=== PATIENT | female | born 1930 | race Caucasian/White ===

== ENCOUNTER 2019-02-26 11:06 | Inpatient (IN) | payer MEDICARE, OTHER ==
[2019-02-26] MEDS: ONDANSETRON 4 MG INJ IV (11:29)
[2019-02-26 11:30] LABS: ADD MAN DIFF? NO
[2019-02-26] MEDS: HYDROmorphONE 1 MG/ML SYG IV (11:30)
[2019-02-26 11:34] LABS: BASOPHILS % 0.4 % (0.0-2.0); EOSINOPHILS # 0.2 10^3/ul (0.0-0.5); EOSINOPHILS % 2.2 % (0.0-7.0); HEMATOCRIT 33.8 % (37.0-47.0); HEMOGLOBIN 10.7 g/dl (12.0-16.0); LYMPHOCYTES # 3.1 10^3/ul (0.8-2.9); MEAN CORPUSCULAR HEMOGLOBIN 27.3 pg (29.0-33.0); MEAN CORPUSCULAR HGB CONC 31.7 g/dl (32.0-37.0); MEAN CORPUSCULAR VOLUME 86.2 fl (82.0-101.0); MEAN PLATELET VOLUME 10.3 fl (7.4-10.4); MONOCYTE # 0.5 10^3/ul (0.3-0.9); MONOCYTES % 6.5 % (0.0-11.0); NEUTROPHIL # 3.5 10^3/ul (1.6-7.5); NEUTROPHILS % 47.4 % (39.0-77.0); PLATELET COUNT 218 10^3/UL (140-415); RED BLOOD COUNT 3.92 10^6/ul (4.20-5.40); RED CELL DISTRIBUTION WIDTH 14.6 % (11.5-14.5)
[2019-02-26 11:34] LABS: WHITE BLOOD COUNT 7.3 10^3/ul (4.8-10.8)
[2019-02-26 11:49] LABS: ALANINE AMINOTRANSFERASE 19 IU/L (13-69); ALBUMIN 4.4 g/dl (3.3-4.9); ALBUMIN/GLOBULIN RATIO 1.18; ALKALINE PHOSPHATASE 75 IU/L (42-121); ANION GAP 14 (5-13); ASPARTATE AMINO TRANSFERASE 28 IU/L (15-46); BILIRUBIN,INDIRECT 0.4 mg/dl (0-1.1); BILIRUBIN,TOTAL 0.4 mg/dl (0.2-1.3); BLOOD UREA NITROGEN 49 mg/dl (7-20); CALCIUM 9.6 mg/dl (8.4-10.2); CARBON DIOXIDE 24 mmol/L (21-31); CHLORIDE 105 mmol/L (97-110); GLUCOSE 112 mg/dl (70-220); POTASSIUM 4.5 mmol/L (3.5-5.1); SODIUM 143 mmol/L (135-144); TOTAL PROTEIN 8.1 g/dl (6.1-8.1)
[2019-02-26 11:51] LABS: INR 1.14; PROTIME 14.7 Sec (11.9-14.9); PT RATIO 1.1
[2019-02-26 11:52] LABS: PARTIAL THROMBOPLASTIN TIME 27.5 Sec (23.0-35.0)
[2019-02-26 12:00] LABS: TROPONIN-I < 0.012 ng/ml (0.000-0.120)
[2019-02-26] MEDS ORDERED: ACETAMINOPHEN 325 MG TAB PO (13:00)
[2019-02-26] MEDS ORDERED: ONDANSETRON 4 MG INJ IV ×2 (13:00)
[2019-02-26 14:50] LABS: ADD UMIC NO; UR ASCORBIC ACID 40 mg/dL (NEGATIVE); UR BACTERIA MANY /HPF (NONE SEEN); UR BILIRUBIN (Dip) NEGATIVE (NEGATIVE); UR BLOOD (Dip) NEGATIVE (NEGATIVE); UR CLARITY SLIGHTLY CLOUDY (CLEAR); UR COLOR YELLOW (YELLOW); UR GLUCOSE (Dip) NEGATIVE (NEGATIVE); UR KETONES (Dip) NEGATIVE (NEGATIVE); UR LEUKOCYTE ESTERASE (Dip) NEGATIVE Leu/ul (NEGATIVE); UR NITRITE (Dip) NEGATIVE (NEGATIVE); UR RBC 0 /HPF (0-5); UR SPECIFIC GRAVITY (Dip) 1.016 (1.003-1.030); UR TOTAL PROTEIN (Dip) NEGATIVE (NEGATIVE); UR UROBILINOGEN (Dip) NEGATIVE (NEGATIVE); UR WBC 1 /HPF (0-5)
[2019-02-26] MEDS ORDERED: morphine 2 MG INJ (15:00)
[2019-02-26] MEDS: morphine 2 MG INJ IV (15:01)
[2019-02-26 15:07] LABS: CREATININE,URINE RANDOM 70.44 mg/dl (20-320)
[2019-02-26 15:07] LABS: SODIUM,URINE RANDOM 111 mmol/L (30-90)
[2019-02-26] MEDS: SOD CHLORIDE 0.9% 1,000 ML IV ×2 (17:14→17:43)
[2019-02-26] MEDS: HYDROCODONE/APAP (5/325) TAB PO (17:32)
[2019-02-26] MEDS: ROPINIROLE 1 MG TAB PO (21:39)
[2019-02-26] MEDS: METOPROLOL (XL) 50 MG TAB PO (21:40)
[2019-02-27] MEDS: SOD CHLORIDE 0.9% 1,000 ML IV ×3 (03:30→21:49)
[2019-02-27 06:05] LABS: ADD MAN DIFF? NO
[2019-02-27] MEDS: PANTOPRAZOLE (EC) 40 MG TAB PO (06:05)
[2019-02-27 06:11] LABS: BASOPHILS % 0.2 % (0.0-2.0); EOSINOPHILS # 0.1 10^3/ul (0.0-0.5); EOSINOPHILS % 0.9 % (0.0-7.0); HEMATOCRIT 30.1 % (37.0-47.0); HEMOGLOBIN 9.4 g/dl (12.0-16.0); LYMPHOCYTES % 17.5 % (15.0-51.0); MEAN CORPUSCULAR HEMOGLOBIN 27.4 pg (29.0-33.0); MEAN CORPUSCULAR HGB CONC 31.2 g/dl (32.0-37.0); MEAN CORPUSCULAR VOLUME 87.8 fl (82.0-101.0); MEAN PLATELET VOLUME 9.6 fl (7.4-10.4); MONOCYTE # 0.4 10^3/ul (0.3-0.9); MONOCYTES % 6.5 % (0.0-11.0); NEUTROPHIL # 4.3 10^3/ul (1.6-7.5); NEUTROPHILS % 74.4 % (39.0-77.0); PLATELET COUNT 164 10^3/UL (140-415); RED BLOOD COUNT 3.43 10^6/ul (4.20-5.40); RED CELL DISTRIBUTION WIDTH 14.1 % (11.5-14.5)
[2019-02-27 06:11] LABS: WHITE BLOOD COUNT 5.7 10^3/ul (4.8-10.8)
[2019-02-27] MEDS: morphine 2 MG INJ IV ×3 (06:41→20:19)
[2019-02-27 06:51] LABS: ALANINE AMINOTRANSFERASE 20 IU/L (13-69); ALBUMIN 3.5 g/dl (3.3-4.9); ALBUMIN/GLOBULIN RATIO 1.12; ALKALINE PHOSPHATASE 47 IU/L (42-121); ANION GAP 7 (5-13); ASPARTATE AMINO TRANSFERASE 25 IU/L (15-46); BILIRUBIN,INDIRECT 0.6 mg/dl (0-1.1); BILIRUBIN,TOTAL 0.6 mg/dl (0.2-1.3); BLOOD UREA NITROGEN 38 mg/dl (7-20); CALCIUM 8.7 mg/dl (8.4-10.2); CARBON DIOXIDE 28 mmol/L (21-31); CHLORIDE 107 mmol/L (97-110); CHOL/HDL RATIO 4.7 RATIO; CHOLESTEROL 189 mg/dl (100-200); CREATININE 1.06 mg/dl (0.44-1.00); GLUCOSE 109 mg/dl (70-220); HDL CHOLESTEROL 40 mg/dl (33-92); LDL CHOLESTEROL,CALCULATED 119 mg/dl; POTASSIUM 4.7 mmol/L (3.5-5.1); SODIUM 142 mmol/L (135-144); TOTAL PROTEIN 6.6 g/dl (6.1-8.1); TRIGLYCERIDES 151 mg/dl (0-149)
[2019-02-27 07:00] LABS: THYROID STIMULATING HORMONE 0.314 MIU/L (0.465-4.680)
[2019-02-27 07:13] LABS: HEMOGLOBIN A1C 5.6 % (0-5.9)
[2019-02-27] MEDS ORDERED: METOPROLOL (XL) 50 MG TAB PO ×2 (09:00)
[2019-02-27] MEDS: AMLODIPINE 5 MG TAB PO (09:19)
[2019-02-27] MEDS: SOLIFENACIN 5 MG TAB PO (09:19)
[2019-02-27] MEDS: SERTRALINE 100 MG TAB PO (09:19)
[2019-02-27] MEDS: METOPROLOL (XL) 50 MG TAB PO (21:50)
[2019-02-27] MEDS: NACL 0.9% 3 ML SYG IV (21:54)
[2019-02-27] MEDS: ROPINIROLE 1 MG TAB PO (22:51)
[2019-02-27] MEDS: HYDROCODONE/APAP (5/325) TAB PO (22:55)
[2019-02-28 00:02] LABS: IMMEDIATE SPIN CROSSMATCH 1 2
[2019-02-28] MEDS: PANTOPRAZOLE (EC) 40 MG TAB PO (02:56)
[2019-02-28] MEDS: morphine 2 MG INJ IV (06:42)
[2019-02-28] MEDS ORDERED: DESFLURANE 15 MIN (07:00)
[2019-02-28] MEDS ORDERED: CEFAZOLIN 1 GM INJ (07:00)
[2019-02-28] MEDS ORDERED: EPHEDrine 25 MG/5 ML SYG (07:00)
[2019-02-28 08:28] LABS: ADD MAN DIFF? NO
[2019-02-28 08:36] LABS: BASOPHILS % 0.2 % (0.0-2.0); EOSINOPHILS % 0.7 % (0.0-7.0); HEMATOCRIT 32.8 % (37.0-47.0); HEMOGLOBIN 10.4 g/dl (12.0-16.0); LYMPHOCYTES # 0.8 10^3/ul (0.8-2.9); LYMPHOCYTES % 13.8 % (15.0-51.0); MEAN CORPUSCULAR HEMOGLOBIN 27.9 pg (29.0-33.0); MEAN CORPUSCULAR HGB CONC 31.7 g/dl (32.0-37.0); MEAN CORPUSCULAR VOLUME 87.9 fl (82.0-101.0); MEAN PLATELET VOLUME 10.2 fl (7.4-10.4); MONOCYTE # 0.5 10^3/ul (0.3-0.9); MONOCYTES % 7.9 % (0.0-11.0); NEUTROPHIL # 4.6 10^3/ul (1.6-7.5); NEUTROPHILS % 76.9 % (39.0-77.0); PLATELET COUNT 140 10^3/UL (140-415); RED BLOOD COUNT 3.73 10^6/ul (4.20-5.40)
[2019-02-28] MEDS: AMLODIPINE 5 MG TAB PO (08:55)
[2019-02-28 08:56] LABS: ANION GAP 8 (5-13); BLOOD UREA NITROGEN 29 mg/dl (7-20); CALCIUM 8.6 mg/dl (8.4-10.2); CARBON DIOXIDE 26 mmol/L (21-31); CHLORIDE 107 mmol/L (97-110); CREATININE 0.86 mg/dl (0.44-1.00); GLUCOSE 109 mg/dl (70-220); MAGNESIUM 1.9 mg/dl (1.7-2.5); PHOSPHORUS 3.9 mg/dl (2.5-4.9); POTASSIUM 4.5 mmol/L (3.5-5.1); SODIUM 141 mmol/L (135-144)
[2019-02-28] MEDS: SOLIFENACIN 5 MG TAB PO (08:56)
[2019-02-28] MEDS: SERTRALINE 100 MG TAB PO (08:56)
[2019-02-28] MEDS: hydrALAzine 20 MG INJ IV (11:43)
[2019-02-28] MEDS ORDERED: MIDAZOLAM 1 MG/ML 2 ML INJ (13:37)
[2019-02-28] MEDS ORDERED: ETOMIDATE 20 MG INJ (13:37)
[2019-02-28] MEDS ORDERED: FENTAnyl 50 MCG/ML VIAL ×2 (13:37→13:44)
[2019-02-28] MEDS ORDERED: morphine SULFATE/PF (10 MG/10 ML) INJ (13:37)
[2019-02-28] MEDS ORDERED: ROCURONIUM 50 MG INJ (14:34)
[2019-02-28] MEDS ORDERED: PROPOFOL 20 ML (14:34)
[2019-02-28] MEDS ORDERED: ROPIVACAINE 0.5 % 30 ML VIAL (14:35)
[2019-02-28] MEDS ORDERED: METOCLOPRAMIDE 10 MG INJ (14:35)
[2019-02-28] MEDS ORDERED: ONDANSETRON 4 MG INJ (14:35)
[2019-02-28] MEDS: POLYMYXIN/BACITRACIN 1L IRRIG IRR (14:50)
[2019-02-28 15:52] LABS: CREATININE, RANDOM URINE 68 mg/dL (20-275); MICROALBUMIN 2.1 mg/dL; MICROALBUMIN/CREATININE RATIO 31 (<30)
[2019-02-28] MEDS ORDERED: MEPERIDINE 25 MG INJ IV (18:00)
[2019-02-28] MEDS ORDERED: LABETALOL HCL 20MG INJ IV (18:00)
[2019-02-28] MEDS ORDERED: DIPHENHYDRAMINE 50 MG INJ IV (18:00)
[2019-02-28] MEDS ORDERED: FENTAnyl 50 MCG/ML VIAL IV ×2 (18:00)
[2019-02-28] MEDS ORDERED: hydrALAzine 20 MG INJ IV (18:00)
[2019-02-28] MEDS ORDERED: EPHEDrine SULFATE 50 MG/5 ML SYG IV (18:00)
[2019-02-28] MEDS ORDERED: HYDROmorphONE 1 MG/5 ML IV SYRINGE IV ×3 (18:00)
[2019-02-28] MEDS: MEPERIDINE 25 MG INJ IV (18:24)
[2019-02-28] MEDS: ONDANSETRON 4 MG INJ IV (18:24)
[2019-02-28] MEDS: FENTAnyl 50 MCG/ML VIAL IV ×2 (18:30→18:42)
[2019-02-28 18:48] LABS: ABNORMAL IP MESSAGE 1; HEMATOCRIT 37.8 % (37.0-47.0); HEMOGLOBIN 11.2 g/dl (12.0-16.0); MEAN CORPUSCULAR HEMOGLOBIN 27.5 pg (29.0-33.0); MEAN CORPUSCULAR HGB CONC 29.6 g/dl (32.0-37.0); MEAN CORPUSCULAR VOLUME 92.9 fl (82.0-101.0); MEAN PLATELET VOLUME 10.5 fl (7.4-10.4); PLATELET COUNT 158 10^3/UL (140-415); RED BLOOD COUNT 4.07 10^6/ul (4.20-5.40); RED CELL DISTRIBUTION WIDTH 14.2 % (11.5-14.5)
[2019-02-28 18:48] LABS: WHITE BLOOD COUNT 11.4 10^3/ul (4.8-10.8)
[2019-02-28 18:56] LABS: POSITIVE DIFF @See below
[2019-02-28 18:57] LABS: ADD MAN DIFF? YES
[2019-02-28 19:07] LABS: ANION GAP 16 (5-13); BLOOD UREA NITROGEN 29 mg/dl (7-20); CALCIUM 8.5 mg/dl (8.4-10.2); CARBON DIOXIDE 19 mmol/L (21-31); CHLORIDE 107 mmol/L (97-110); CREATININE 1.04 mg/dl (0.44-1.00); GLUCOSE 153 mg/dl (70-220); POTASSIUM 4.2 mmol/L (3.5-5.1); SODIUM 142 mmol/L (135-144)
[2019-02-28] MEDS ORDERED: CEFAZOLIN 2 GM/50 ML (PMX) 50 ML IVPB (20:00)
[2019-02-28] MEDS: SOD CHLORIDE 0.9% 1,000 ML IV (20:35)
[2019-02-28] MEDS: ROPINIROLE 1 MG TAB PO (21:08)
[2019-02-28] MEDS: METOPROLOL (XL) 50 MG TAB PO (21:08)
[2019-02-28] MEDS: CEFAZOLIN 2 GM/50 ML (PMX) 50 ML IVPB (22:30)
[2019-02-28 23:23] LABS: LYMPHOCYTES % (M) 9 % (15-51); MONOCYTES % (M) 9 % (0-11); MYELOCYTES #M 0.1 10^3/ul (0.0-0.0); MYELOCYTES % (M) 1 % (0-0); OVALOCYTES 1+ (0-0); PLATELET ESTIMATE NORMAL; POIKILOCYTOSIS 1+ (0-0); POLYCHROMASIA 3+ (0-0); SEGMENTED NEUTROPHILS (M) % 81 % (39-77); SMUDGE%M 6 % (0-0)
[2019-03-01] MEDS: morphine 2 MG INJ IV (01:14)
[2019-03-01] MEDS: SOD CHLORIDE 0.9% 250 ML IV ×2 (01:27→06:49)
[2019-03-01 05:15] LABS: ADD MAN DIFF? NO; HEMATOCRIT 28.8 % (37.0-47.0); LYMPHOCYTES # 0.8 10^3/ul (0.8-2.9); MEAN CORPUSCULAR HEMOGLOBIN 27.7 pg (29.0-33.0); MEAN CORPUSCULAR HGB CONC 31.3 g/dl (32.0-37.0); MEAN CORPUSCULAR VOLUME 88.6 fl (82.0-101.0); MEAN PLATELET VOLUME 10.4 fl (7.4-10.4); MONOCYTE # 0.7 10^3/ul (0.3-0.9); MONOCYTES % 8.3 % (0.0-11.0); NEUTROPHILS % 82.1 % (39.0-77.0); PLATELET COUNT 152 10^3/UL (140-415); RED BLOOD COUNT 3.25 10^6/ul (4.20-5.40); RED CELL DISTRIBUTION WIDTH 14.3 % (11.5-14.5)
[2019-03-01 05:15] LABS: WHITE BLOOD COUNT 8.5 10^3/ul (4.8-10.8)
[2019-03-01] MEDS: PANTOPRAZOLE (EC) 40 MG TAB PO (05:35)
[2019-03-01 05:36] LABS: ANION GAP 10 (5-13); BLOOD UREA NITROGEN 36 mg/dl (7-20); CARBON DIOXIDE 23 mmol/L (21-31); CHLORIDE 108 mmol/L (97-110); CREATININE 1.42 mg/dl (0.44-1.00); GLUCOSE 144 mg/dl (70-220); MAGNESIUM 1.7 mg/dl (1.7-2.5); PHOSPHORUS 5.3 mg/dl (2.5-4.9); POTASSIUM 4.3 mmol/L (3.5-5.1); SODIUM 141 mmol/L (135-144)
[2019-03-01] MEDS: CEFAZOLIN 2 GM/50 ML (PMX) 50 ML IVPB ×2 (05:36→15:44)
[2019-03-01] MEDS: SOD CHLORIDE 0.9% 1,000 ML IV ×2 (05:37→15:43)
[2019-03-01] MEDS: SOLIFENACIN 5 MG TAB PO (08:42)
[2019-03-01] MEDS: AMLODIPINE 5 MG TAB PO (08:42)
[2019-03-01] MEDS: SERTRALINE 100 MG TAB PO (08:42)
[2019-03-01] MEDS: ENOXAPARIN 30 MG/0.3 ML SYG SC (08:48)
[2019-03-01] MEDS: HYDROCODONE/APAP (5/325) TAB PO ×2 (08:49→13:16)
[2019-03-01] MEDS ORDERED: OXYCODONE/ACETAMINOPHEN (10/325) TAB PO (14:00)
[2019-03-01] MEDS: OXYCODONE/ACETAMINOPHEN (5/325) TAB PO (19:07)
[2019-03-01] MEDS: ROPINIROLE 1 MG TAB PO (22:36)
[2019-03-01] MEDS: METOPROLOL (XL) 50 MG TAB PO (22:37)
[2019-03-02] MEDS: SOD CHLORIDE 0.9% 1,000 ML IV (05:25)
[2019-03-02] MEDS: PANTOPRAZOLE (EC) 40 MG TAB PO (05:28)
[2019-03-02 06:01] LABS: ABNORMAL IP MESSAGE 1; HEMATOCRIT 21.3 % (37.0-47.0); MEAN CORPUSCULAR HEMOGLOBIN 28.6 pg (29.0-33.0); MEAN CORPUSCULAR HGB CONC 31.9 g/dl (32.0-37.0); MEAN CORPUSCULAR VOLUME 89.5 fl (82.0-101.0); MEAN PLATELET VOLUME 10.8 fl (7.4-10.4); PLATELET COUNT 121 10^3/UL (140-415); RED BLOOD COUNT 2.38 10^6/ul (4.20-5.40); RED CELL DISTRIBUTION WIDTH 14.6 % (11.5-14.5)
[2019-03-02 06:01] LABS: WHITE BLOOD COUNT 6.1 10^3/ul (4.8-10.8)
[2019-03-02 06:11] LABS: POSITIVE DIFF @See below
[2019-03-02 06:12] LABS: ADD MAN DIFF? YES; ANION GAP 8 (5-13); BLOOD UREA NITROGEN 41 mg/dl (7-20); CALCIUM 7.2 mg/dl (8.4-10.2); CARBON DIOXIDE 21 mmol/L (21-31); CHLORIDE 110 mmol/L (97-110); CREATININE 1.42 mg/dl (0.44-1.00); GLUCOSE 98 mg/dl (70-220); HEMOGLOBIN 6.8 g/dl (12.0-16.0); MAGNESIUM 1.7 mg/dl (1.7-2.5); POTASSIUM 3.9 mmol/L (3.5-5.1); SODIUM 139 mmol/L (135-144)
[2019-03-02] MEDS: OXYCODONE/ACETAMINOPHEN (5/325) TAB PO (06:26)
[2019-03-02 07:59] LABS: SEGMENTED NEUTROPHILS (M) % 86 % (39-77)
[2019-03-02 08:00] LABS: ANISOCYTOSIS 1+ (0-0); BASOPHILS % (M) 1 % (0-2); EOSINOPHILS % (M) 2 % (0-7); GIANT THROMBO% (M) 2 % (0-0); LYMPHOCYTES #M 0.6 10^3/ul (0.8-2.9); LYMPHOCYTES % (M) 10 % (15-51); MICROCYTOSIS 1+ (0-0); MONOCYTES % (M) 1 % (0-11); PLATELET ESTIMATE DECREASED; SMUDGE%M 5 % (0-0)
[2019-03-02] MEDS: SERTRALINE 100 MG TAB PO (08:24)
[2019-03-02] MEDS: SOLIFENACIN 5 MG TAB PO (08:24)
[2019-03-02] MEDS: ENOXAPARIN 30 MG/0.3 ML SYG SC ×2 (08:29→08:42)
[2019-03-02] MEDS: HYDROCODONE/APAP (5/325) TAB PO (10:22)
[2019-03-02 10:32] LABS: ADD MAN DIFF? NO
[2019-03-02 10:41] LABS: BASOPHILS % 0.1 % (0.0-2.0); EOSINOPHILS # 0.1 10^3/ul (0.0-0.5); EOSINOPHILS % 0.9 % (0.0-7.0); HEMATOCRIT 22.7 % (37.0-47.0); HEMOGLOBIN 7.1 g/dl (12.0-16.0); LYMPHOCYTES # 0.8 10^3/ul (0.8-2.9); LYMPHOCYTES % 10.2 % (15.0-51.0); MEAN CORPUSCULAR HGB CONC 31.3 g/dl (32.0-37.0); MEAN CORPUSCULAR VOLUME 89.4 fl (82.0-101.0); MEAN PLATELET VOLUME 10.1 fl (7.4-10.4); MONOCYTE # 0.4 10^3/ul (0.3-0.9); MONOCYTES % 5.1 % (0.0-11.0); NEUTROPHIL # 6.2 10^3/ul (1.6-7.5); NEUTROPHILS % 82.9 % (39.0-77.0); PLATELET COUNT 136 10^3/UL (140-415); RED BLOOD COUNT 2.54 10^6/ul (4.20-5.40); RED CELL DISTRIBUTION WIDTH 14.6 % (11.5-14.5)
[2019-03-02 10:41] LABS: WHITE BLOOD COUNT 7.5 10^3/ul (4.8-10.8)
[2019-03-02 11:46] LABS: IRON < 10 ug/dl (35-150)
[2019-03-02 11:51] LABS: TOTAL IRON BINDING CAPACITY 198 ug/dl (241-421)
[2019-03-02] MEDS: traMADol 50 MG TAB PO (13:31)
[2019-03-02] MEDS: SOD FERRIC GLUC COMPLX 125 MG in SOD CHLORIDE 0.9% 100 ML IVPB (16:31)
[2019-03-02] MEDS: ASPIRIN 81 MG TAB PO (21:05)
[2019-03-02] MEDS: METOPROLOL (XL) 50 MG TAB PO (21:06)
[2019-03-02] MEDS: ROPINIROLE 1 MG TAB PO (21:06)
[2019-03-02] MEDS: POLYETHYLENE GLYCOL 17 GM PACKET PO (21:06)
[2019-03-03 05:52] LABS: ADD MAN DIFF? NO
[2019-03-03 05:58] LABS: WHITE BLOOD COUNT 4.6 10^3/ul (4.8-10.8)
[2019-03-03 05:58] LABS: ABNORMAL IP MESSAGE 1; EOSINOPHILS # 0.1 10^3/ul (0.0-0.5); EOSINOPHILS % 1.8 % (0.0-7.0); LYMPHOCYTES # 0.6 10^3/ul (0.8-2.9); MEAN CORPUSCULAR HEMOGLOBIN 28.3 pg (29.0-33.0); MEAN CORPUSCULAR HGB CONC 31.4 g/dl (32.0-37.0); MEAN CORPUSCULAR VOLUME 90.1 fl (82.0-101.0); MEAN PLATELET VOLUME 10.9 fl (7.4-10.4); MONOCYTE # 0.4 10^3/ul (0.3-0.9); MONOCYTES % 7.7 % (0.0-11.0); NEUTROPHIL # 3.5 10^3/ul (1.6-7.5); NEUTROPHILS % 75.8 % (39.0-77.0); PLATELET COUNT 134 10^3/UL (140-415); RED BLOOD COUNT 2.33 10^6/ul (4.20-5.40); RED CELL DISTRIBUTION WIDTH 14.7 % (11.5-14.5)
[2019-03-03] MEDS: PANTOPRAZOLE (EC) 40 MG TAB PO (06:16)
[2019-03-03 06:19] LABS: ANION GAP 8 (5-13); BLOOD UREA NITROGEN 47 mg/dl (7-20); CALCIUM 7.8 mg/dl (8.4-10.2); CARBON DIOXIDE 22 mmol/L (21-31); CHLORIDE 108 mmol/L (97-110); CREATININE 1.34 mg/dl (0.44-1.00); GLUCOSE 89 mg/dl (70-220); MAGNESIUM 2.1 mg/dl (1.7-2.5); PHOSPHORUS 4.2 mg/dl (2.5-4.9); POTASSIUM 4.2 mmol/L (3.5-5.1); SODIUM 138 mmol/L (135-144)
[2019-03-03 06:21] LABS: HEMOGLOBIN 6.6 g/dl (12.0-16.0); POSITIVE DIFF @See below
[2019-03-03] MEDS: SOD CHLORIDE 0.9% 1,000 ML IV ×3 (06:37→09:26)
[2019-03-03] MEDS: POLYETHYLENE GLYCOL 17 GM PACKET PO (09:13)
[2019-03-03] MEDS: SOLIFENACIN 5 MG TAB PO (09:13)
[2019-03-03] MEDS: SERTRALINE 100 MG TAB PO (09:14)
[2019-03-03] MEDS: traMADol 50 MG TAB PO (09:19)
[2019-03-03 11:15] LABS: ADD MAN DIFF? NO
[2019-03-03 11:19] LABS: WHITE BLOOD COUNT 4.8 10^3/ul (4.8-10.8)
[2019-03-03 11:19] LABS: ABNORMAL IP MESSAGE 1; BASOPHILS % 0.2 % (0.0-2.0); EOSINOPHILS # 0.1 10^3/ul (0.0-0.5); EOSINOPHILS % 2.1 % (0.0-7.0); HEMATOCRIT 21.3 % (37.0-47.0); LYMPHOCYTES # 0.6 10^3/ul (0.8-2.9); LYMPHOCYTES % 12.4 % (15.0-51.0); MEAN CORPUSCULAR HEMOGLOBIN 27.8 pg (29.0-33.0); MEAN CORPUSCULAR VOLUME 89.9 fl (82.0-101.0); MEAN PLATELET VOLUME 10.8 fl (7.4-10.4); MONOCYTE # 0.3 10^3/ul (0.3-0.9); MONOCYTES % 6.7 % (0.0-11.0); NEUTROPHIL # 3.7 10^3/ul (1.6-7.5); PLATELET COUNT 140 10^3/UL (140-415); RED BLOOD COUNT 2.37 10^6/ul (4.20-5.40); RED CELL DISTRIBUTION WIDTH 14.6 % (11.5-14.5)
[2019-03-03 11:32] LABS: HEMOGLOBIN 6.6 g/dl (12.0-16.0)
[2019-03-03 11:33] LABS: POSITIVE DIFF @See below
[2019-03-03] MEDS: SENNA/DOCUSATE NA (8.6MG/50MG) TAB PO ×2 (13:34→21:07)
[2019-03-03 15:00] LABS: ALBUMIN 2.6 g/dl (3.3-4.9)
[2019-03-03] MEDS: SOD FERRIC GLUC COMPLX 125 MG in SOD CHLORIDE 0.9% 100 ML IVPB (19:16)
[2019-03-03] MEDS: BISACODYL (EC) 5 MG TAB PO (19:19)
[2019-03-03] MEDS: ROPINIROLE 1 MG TAB PO (21:07)
[2019-03-03] MEDS: METOPROLOL (XL) 50 MG TAB PO (21:08)
[2019-03-04 05:09] LABS: ADD MAN DIFF? NO
[2019-03-04 05:21] LABS: WHITE BLOOD COUNT 4.1 10^3/ul (4.8-10.8)
[2019-03-04 05:21] LABS: BASOPHILS % 0.2 % (0.0-2.0); EOSINOPHILS # 0.1 10^3/ul (0.0-0.5); EOSINOPHILS % 2.7 % (0.0-7.0); HEMATOCRIT 22.9 % (37.0-47.0); HEMOGLOBIN 7.2 g/dl (12.0-16.0); LYMPHOCYTES # 0.6 10^3/ul (0.8-2.9); LYMPHOCYTES % 15.5 % (15.0-51.0); MEAN CORPUSCULAR HGB CONC 31.4 g/dl (32.0-37.0); MEAN CORPUSCULAR VOLUME 89.1 fl (82.0-101.0); MEAN PLATELET VOLUME 10.6 fl (7.4-10.4); MONOCYTE # 0.4 10^3/ul (0.3-0.9); MONOCYTES % 8.6 % (0.0-11.0); NEUTROPHIL # 2.9 10^3/ul (1.6-7.5); NEUTROPHILS % 72.3 % (39.0-77.0); PLATELET COUNT 142 10^3/UL (140-415); RED BLOOD COUNT 2.57 10^6/ul (4.20-5.40); RED CELL DISTRIBUTION WIDTH 14.4 % (11.5-14.5)
[2019-03-04 05:55] LABS: ANION GAP 9 (5-13); CARBON DIOXIDE 22 mmol/L (21-31); CHLORIDE 108 mmol/L (97-110); GLUCOSE 98 mg/dl (70-220); POTASSIUM 4.4 mmol/L (3.5-5.1); SODIUM 139 mmol/L (135-144)
[2019-03-04 05:56] LABS: ALBUMIN 2.7 g/dl (3.3-4.9); BLOOD UREA NITROGEN 45 mg/dl (7-20); CALCIUM 8.1 mg/dl (8.4-10.2); CREATININE 1.14 mg/dl (0.44-1.00); MAGNESIUM 2.2 mg/dl (1.7-2.5); PHOSPHORUS 3.6 mg/dl (2.5-4.9)
[2019-03-04] MEDS: PANTOPRAZOLE (EC) 40 MG TAB PO (06:18)
[2019-03-04] MEDS: SERTRALINE 100 MG TAB PO (08:58)
[2019-03-04] MEDS: SOLIFENACIN 5 MG TAB PO (08:58)
[2019-03-04] MEDS: POLYETHYLENE GLYCOL 17 GM PACKET PO (08:58)
[2019-03-04] MEDS: SENNA/DOCUSATE NA (8.6MG/50MG) TAB PO ×2 (08:58→20:26)
[2019-03-04] MEDS ORDERED: ALBUTEROL 0.083% (NEB) 2.5 MG/3 ML AMP HHN (09:00)
[2019-03-04] MEDS: traMADol 50 MG TAB PO ×2 (09:07→20:25)
[2019-03-04] MEDS: BISACODYL 10 MG SUPP PR (10:33)
[2019-03-04] MEDS: SOD FERRIC GLUC COMPLX 125 MG in SOD CHLORIDE 0.9% 100 ML IVPB (13:54)
[2019-03-04 17:07] LABS: IMMEDIATE SPIN CROSSMATCH 1 2
[2019-03-04] MEDS: ROPINIROLE 1 MG TAB PO (20:24)
[2019-03-04] MEDS: METOPROLOL (XL) 50 MG TAB PO (20:25)
[2019-03-05 05:19] LABS: ADD MAN DIFF? NO
[2019-03-05 05:23] LABS: BASOPHILS % 0.4 % (0.0-2.0); EOSINOPHILS # 0.1 10^3/ul (0.0-0.5); EOSINOPHILS % 2.1 % (0.0-7.0); HEMATOCRIT 25.3 % (37.0-47.0); HEMOGLOBIN 8.1 g/dl (12.0-16.0); LYMPHOCYTES # 0.6 10^3/ul (0.8-2.9); LYMPHOCYTES % 13.3 % (15.0-51.0); MEAN CORPUSCULAR HEMOGLOBIN 28.4 pg (29.0-33.0); MEAN CORPUSCULAR VOLUME 88.8 fl (82.0-101.0); MEAN PLATELET VOLUME 10.8 fl (7.4-10.4); MONOCYTE # 0.4 10^3/ul (0.3-0.9); MONOCYTES % 8.7 % (0.0-11.0); NEUTROPHIL # 3.5 10^3/ul (1.6-7.5); NEUTROPHILS % 74.4 % (39.0-77.0); NUCLEATED RED BLOOD CELLS% 0.4 /100WBC (0.0-0.0); PLATELET COUNT 175 10^3/UL (140-415); RED BLOOD COUNT 2.85 10^6/ul (4.20-5.40); RED CELL DISTRIBUTION WIDTH 14.3 % (11.5-14.5)
[2019-03-05 05:23] LABS: WHITE BLOOD COUNT 4.7 10^3/ul (4.8-10.8)
[2019-03-05 05:37] LABS: ALBUMIN 2.4 g/dl (3.3-4.9); ANION GAP 8 (5-13); BLOOD UREA NITROGEN 38 mg/dl (7-20); CALCIUM 8.1 mg/dl (8.4-10.2); CARBON DIOXIDE 24 mmol/L (21-31); CHLORIDE 108 mmol/L (97-110); CREATININE 0.94 mg/dl (0.44-1.00); GLUCOSE 83 mg/dl (70-220); POTASSIUM 4.2 mmol/L (3.5-5.1); SODIUM 140 mmol/L (135-144)
[2019-03-05] MEDS: SOD CHLORIDE 0.9% 1,000 ML IV (06:08)
[2019-03-05] MEDS: PANTOPRAZOLE (EC) 40 MG TAB PO (06:08)
[2019-03-05] MEDS: POLYETHYLENE GLYCOL 17 GM PACKET PO (09:10)
[2019-03-05] MEDS: SENNA/DOCUSATE NA (8.6MG/50MG) TAB PO ×2 (09:11→21:48)
[2019-03-05] MEDS: SERTRALINE 100 MG TAB PO (09:11)
[2019-03-05] MEDS: SOLIFENACIN 5 MG TAB PO (09:11)
[2019-03-05] MEDS: ACETAMINOPHEN 325 MG TAB PO ×2 (09:19→21:50)
[2019-03-05] MEDS: AMLODIPINE 5 MG TAB PO (14:08)
[2019-03-05] MEDS ORDERED: traMADol 50 MG TAB PO (15:00)
[2019-03-05] MEDS: ROPINIROLE 1 MG TAB PO (21:48)
[2019-03-05] MEDS: METOPROLOL (XL) 50 MG TAB PO (21:49)
[2019-03-05] MEDS: NACL 0.9% 3 ML SYG IV (21:51)
[2019-03-06 05:04] LABS: ADD MAN DIFF? NO
[2019-03-06 05:10] LABS: WHITE BLOOD COUNT 4.9 10^3/ul (4.8-10.8)
[2019-03-06 05:10] LABS: BASOPHILS % 0.4 % (0.0-2.0); EOSINOPHILS # 0.1 10^3/ul (0.0-0.5); EOSINOPHILS % 2.4 % (0.0-7.0); HEMATOCRIT 26.3 % (37.0-47.0); HEMOGLOBIN 8.3 g/dl (12.0-16.0); LYMPHOCYTES # 0.9 10^3/ul (0.8-2.9); LYMPHOCYTES % 17.8 % (15.0-51.0); MEAN CORPUSCULAR HEMOGLOBIN 27.9 pg (29.0-33.0); MEAN CORPUSCULAR HGB CONC 31.6 g/dl (32.0-37.0); MEAN CORPUSCULAR VOLUME 88.6 fl (82.0-101.0); MEAN PLATELET VOLUME 10.1 fl (7.4-10.4); MONOCYTE # 0.5 10^3/ul (0.3-0.9); MONOCYTES % 9.1 % (0.0-11.0); NEUTROPHIL # 3.4 10^3/ul (1.6-7.5); NEUTROPHILS % 68.3 % (39.0-77.0); PLATELET COUNT 191 10^3/UL (140-415); RED BLOOD COUNT 2.97 10^6/ul (4.20-5.40); RED CELL DISTRIBUTION WIDTH 14.4 % (11.5-14.5)
[2019-03-06 05:31] LABS: ALBUMIN 2.6 g/dl (3.3-4.9); ANION GAP 5 (5-13); BLOOD UREA NITROGEN 31 mg/dl (7-20); CALCIUM 8.8 mg/dl (8.4-10.2); CARBON DIOXIDE 25 mmol/L (21-31); CHLORIDE 112 mmol/L (97-110); CREATININE 0.99 mg/dl (0.44-1.00); GLUCOSE 84 mg/dl (70-220); PHOSPHORUS 2.9 mg/dl (2.5-4.9); SODIUM 142 mmol/L (135-144)
[2019-03-06] MEDS: PANTOPRAZOLE (EC) 40 MG TAB PO (06:43)
[2019-03-06] MEDS: SENNA/DOCUSATE NA (8.6MG/50MG) TAB PO (09:00)
[2019-03-06] MEDS: POLYETHYLENE GLYCOL 17 GM PACKET PO (09:00)
[2019-03-06] MEDS: SOLIFENACIN 5 MG TAB PO (09:42)
[2019-03-06] MEDS: ACETAMINOPHEN 325 MG TAB PO ×3 (09:43→21:02)
[2019-03-06] MEDS: AMLODIPINE 10 MG TAB PO (09:44)
[2019-03-06] MEDS: SERTRALINE 100 MG TAB PO (09:44)
[2019-03-06] MEDS: ASPIRIN 81 MG TAB PO ×2 (09:45→20:57)
[2019-03-06] MEDS: DOCUSATE SODIUM 100 MG CAP PO ×2 (11:29→20:58)
[2019-03-06] MEDS: LISINOPRIL 5 MG TAB PO (14:40)
[2019-03-06] MEDS: ROPINIROLE 1 MG TAB PO (20:57)
[2019-03-06] MEDS: METOPROLOL (XL) 50 MG TAB PO (20:58)
[2019-03-07 05:24] LABS: ADD MAN DIFF? NO
[2019-03-07 05:37] LABS: BASOPHILS % 0.3 % (0.0-2.0); EOSINOPHILS # 0.2 10^3/ul (0.0-0.5); EOSINOPHILS % 2.8 % (0.0-7.0); HEMATOCRIT 27.4 % (37.0-47.0); HEMOGLOBIN 8.7 g/dl (12.0-16.0); LYMPHOCYTES # 0.9 10^3/ul (0.8-2.9); LYMPHOCYTES % 14.3 % (15.0-51.0); MEAN CORPUSCULAR HEMOGLOBIN 28.1 pg (29.0-33.0); MEAN CORPUSCULAR HGB CONC 31.8 g/dl (32.0-37.0); MEAN CORPUSCULAR VOLUME 88.4 fl (82.0-101.0); MEAN PLATELET VOLUME 10.3 fl (7.4-10.4); MONOCYTE # 0.5 10^3/ul (0.3-0.9); MONOCYTES % 7.5 % (0.0-11.0); NEUTROPHIL # 4.4 10^3/ul (1.6-7.5); NEUTROPHILS % 72.5 % (39.0-77.0); NUCLEATED RED BLOOD CELLS% 0.3 /100WBC (0.0-0.0); PLATELET COUNT 229 10^3/UL (140-415); RED CELL DISTRIBUTION WIDTH 14.4 % (11.5-14.5)
[2019-03-07 05:37] LABS: WHITE BLOOD COUNT 6.1 10^3/ul (4.8-10.8)
[2019-03-07] MEDS: PANTOPRAZOLE (EC) 40 MG TAB PO (05:46)
[2019-03-07] MEDS: hydrALAzine 20 MG INJ IV (05:53)
[2019-03-07 06:16] LABS: ANION GAP 5 (5-13); BLOOD UREA NITROGEN 27 mg/dl (7-20); CALCIUM 8.6 mg/dl (8.4-10.2); CARBON DIOXIDE 27 mmol/L (21-31); CHLORIDE 110 mmol/L (97-110); CREATININE 0.93 mg/dl (0.44-1.00); GLUCOSE 101 mg/dl (70-220); MAGNESIUM 1.7 mg/dl (1.7-2.5); POTASSIUM 3.8 mmol/L (3.5-5.1); SODIUM 142 mmol/L (135-144)
[2019-03-07] MEDS: DOCUSATE SODIUM 100 MG CAP PO ×2 (09:00→21:00)
[2019-03-07] MEDS: SERTRALINE 100 MG TAB PO (09:03)
[2019-03-07] MEDS: SOLIFENACIN 5 MG TAB PO (09:03)
[2019-03-07] MEDS: AMLODIPINE 10 MG TAB PO (09:04)
[2019-03-07] MEDS: ASPIRIN 81 MG TAB PO ×2 (09:05→21:33)
[2019-03-07] MEDS: ACETAMINOPHEN 325 MG TAB PO ×2 (09:08→21:31)
[2019-03-07] MEDS: LISINOPRIL 10 MG TAB PO (09:49)
[2019-03-07] MEDS: ROPINIROLE 1 MG TAB PO (21:32)
[2019-03-07] MEDS: METOPROLOL (XL) 50 MG TAB PO (21:32)
[2019-03-08 05:04] LABS: ADD MAN DIFF? NO
[2019-03-08 05:11] LABS: WHITE BLOOD COUNT 6.8 10^3/ul (4.8-10.8)
[2019-03-08 05:11] LABS: BASOPHILS % 0.4 % (0.0-2.0); EOSINOPHILS # 0.2 10^3/ul (0.0-0.5); EOSINOPHILS % 3.4 % (0.0-7.0); HEMATOCRIT 28.9 % (37.0-47.0); HEMOGLOBIN 9.1 g/dl (12.0-16.0); LYMPHOCYTES # 1.2 10^3/ul (0.8-2.9); LYMPHOCYTES % 17.7 % (15.0-51.0); MEAN CORPUSCULAR HEMOGLOBIN 27.9 pg (29.0-33.0); MEAN CORPUSCULAR HGB CONC 31.5 g/dl (32.0-37.0); MEAN CORPUSCULAR VOLUME 88.7 fl (82.0-101.0); MEAN PLATELET VOLUME 9.9 fl (7.4-10.4); MONOCYTE # 0.4 10^3/ul (0.3-0.9); MONOCYTES % 5.6 % (0.0-11.0); NEUTROPHIL # 4.8 10^3/ul (1.6-7.5); PLATELET COUNT 246 10^3/UL (140-415); RED BLOOD COUNT 3.26 10^6/ul (4.20-5.40); RED CELL DISTRIBUTION WIDTH 14.6 % (11.5-14.5)
[2019-03-08 05:40] LABS: ANION GAP 4 (5-13); BLOOD UREA NITROGEN 24 mg/dl (7-20); CARBON DIOXIDE 28 mmol/L (21-31); CHLORIDE 110 mmol/L (97-110); CREATININE 0.94 mg/dl (0.44-1.00); GLUCOSE 103 mg/dl (70-220); MAGNESIUM 1.6 mg/dl (1.7-2.5); PHOSPHORUS 3.4 mg/dl (2.5-4.9); POTASSIUM 3.9 mmol/L (3.5-5.1); SODIUM 142 mmol/L (135-144)
[2019-03-08] MEDS: PANTOPRAZOLE (EC) 40 MG TAB PO (05:55)
[2019-03-08] MEDS: SOLIFENACIN 5 MG TAB PO (09:18)
[2019-03-08] MEDS: SERTRALINE 100 MG TAB PO (09:18)
[2019-03-08] MEDS: DOCUSATE SODIUM 100 MG CAP PO (09:18)
[2019-03-08] MEDS: ASPIRIN 81 MG TAB PO (09:18)
[2019-03-08] MEDS: AMLODIPINE 10 MG TAB PO (09:19)
[2019-03-08] MEDS: LISINOPRIL 10 MG TAB PO (09:21)
[2019-03-08] MEDS: MAGNESIUM OXIDE 400 MG TAB PO (09:23)
[2019-03-08] MEDS: ACETAMINOPHEN 325 MG TAB PO (09:24)
[2019-03-08] MEDS: MAGNESIUM SULFATE 2 GM/50 ML 50 ML IVPB (11:03)
[2019-03-08] MEDS ORDERED: HYDROCORTISONE 1% 26 GM RECT CR PR (17:00)
== END 2019-03-08 15:20 | DRG 481 ==
LOC: E/R 11:06 → MS1 02-27 21:00 → PP2 12:46
PROC: 0QS606Z Reposition Right Upper Femur with Intramedullary Internal Fixation Device, Open Approach (ICD-10-PCS; principal; 2019-02-28 13:00)
PROC: 30233N1 Transfusion of Nonautologous Red Blood Cells into Peripheral Vein, Percutaneous Approach (ICD-10-PCS; 2019-02-28 13:00)
DX: S72.141A Displaced intertrochanteric fracture of right femur, initial encounter for closed fracture (principal); N17.9 Acute kidney failure, unspecified; D62 Acute posthemorrhagic anemia; I45.10 Unspecified right bundle-branch block; E78.00 Pure hypercholesterolemia, unspecified; I10 Essential (primary) hypertension; N32.81 Overactive bladder; G25.81 Restless legs syndrome; F39 Unspecified mood [affective] disorder; I95.9 Hypotension, unspecified; K59.00 Constipation, unspecified; W18.39XA Other fall on same level, initial encounter; Y92.59 Other trade areas as the place of occurrence of the external cause; M16.11 Unilateral primary osteoarthritis, right hip; S72.21XA Displaced subtrochanteric fracture of right femur, initial encounter for closed fracture; E83.42 Hypomagnesemia
CPT/HCPCS: 36415; 36430; 70450; 71045; 73500; 73510; 73530; 73560; 73700; 76775; 80048; 80053; 80061; 80069; 81001; 81003; 82040; 82043; 83036; 83540; 83735; 84100; 84155; 84300; 84443; 84484; 85025; 85610; 85730; 86850; 86900; 86901; 86920; 93005; 93306; 96374; 96375; 97110; 97162; 97530; 99285-25

== ENCOUNTER 2019-03-08 15:38 | Inpatient (IN) | payer MEDICARE, OTHER ==
[2019-03-08] MEDS ORDERED: BISACODYL 10 MG SUPP PR (16:00)
[2019-03-08] MEDS ORDERED: PENDING SANTYL ORDER FOR WOUND CARE XX (16:00)
[2019-03-08] MEDS ORDERED: HYDROCORTISONE 1% 26 GM RECT CR PR (16:30)
[2019-03-08] MEDS ORDERED: ONDANSETRON 4 MG INJ IV (16:30)
[2019-03-08] MEDS ORDERED: HYDROCODONE/APAP (5/325) TAB PO (16:30)
[2019-03-08] MEDS ORDERED: hydrALAzine 20 MG INJ IV (16:30)
[2019-03-08 20:17] LABS: ADD UMIC YES; UR ASCORBIC ACID NEGATIVE (NEGATIVE); UR BACTERIA FEW /HPF (NONE SEEN); UR BILIRUBIN (Dip) NEGATIVE (NEGATIVE); UR BLOOD (Dip) 2+ mg/dL (NEGATIVE); UR CLARITY SLIGHTLY CLOUDY (CLEAR); UR COLOR YELLOW (YELLOW); UR GLUCOSE (Dip) NEGATIVE (NEGATIVE); UR KETONES (Dip) NEGATIVE (NEGATIVE); UR LEUKOCYTE ESTERASE (Dip) 1+ Leu/ul (NEGATIVE); UR NITRITE (Dip) NEGATIVE (NEGATIVE); UR RBC 5 /HPF (0-5); UR SPECIFIC GRAVITY (Dip) 1.012 (1.003-1.030); UR SQUAMOUS EPITHELIAL CELL MODERATE /HPF (FEW); UR TOTAL PROTEIN (Dip) NEGATIVE (NEGATIVE); UR UROBILINOGEN (Dip) NEGATIVE (NEGATIVE); UR WBC 4 /HPF (0-5)
[2019-03-08] MEDS: ACETAMINOPHEN 325 MG TAB PO (21:04)
[2019-03-08] MEDS: ROPINIROLE 1 MG TAB PO (21:04)
[2019-03-08] MEDS: METOPROLOL (XL) 50 MG TAB PO (21:05)
[2019-03-08] MEDS: ASPIRIN 81 MG TAB PO (21:05)
[2019-03-09] MEDS: PANTOPRAZOLE (EC) 40 MG TAB PO (06:21)
[2019-03-09 07:30] LABS: ADD MAN DIFF? NO
[2019-03-09 07:50] LABS: BASOPHILS % 0.6 % (0.0-2.0); EOSINOPHILS # 0.2 10^3/ul (0.0-0.5); EOSINOPHILS % 2.9 % (0.0-7.0); HEMATOCRIT 29.4 % (37.0-47.0); HEMOGLOBIN 9.4 g/dl (12.0-16.0); LYMPHOCYTES # 1.1 10^3/ul (0.8-2.9); LYMPHOCYTES % 17.8 % (15.0-51.0); MEAN CORPUSCULAR HEMOGLOBIN 28.1 pg (29.0-33.0); MONOCYTE # 0.4 10^3/ul (0.3-0.9); MONOCYTES % 6.9 % (0.0-11.0); NEUTROPHIL # 4.3 10^3/ul (1.6-7.5); NEUTROPHILS % 69.2 % (39.0-77.0); PLATELET COUNT 263 10^3/UL (140-415); RED BLOOD COUNT 3.34 10^6/ul (4.20-5.40); RED CELL DISTRIBUTION WIDTH 14.5 % (11.5-14.5)
[2019-03-09 07:50] LABS: WHITE BLOOD COUNT 6.2 10^3/ul (4.8-10.8)
[2019-03-09 08:53] LABS: ALANINE AMINOTRANSFERASE 13 IU/L (13-69); ALKALINE PHOSPHATASE 81 IU/L (42-121); ANION GAP 7 (5-13); ASPARTATE AMINO TRANSFERASE 65 IU/L (15-46); BILIRUBIN,INDIRECT 0.3 mg/dl (0-1.1); BILIRUBIN,TOTAL 0.3 mg/dl (0.2-1.3); BLOOD UREA NITROGEN 22 mg/dl (7-20); CALCIUM 9.3 mg/dl (8.4-10.2); CARBON DIOXIDE 27 mmol/L (21-31); CHLORIDE 110 mmol/L (97-110); CREATININE 0.89 mg/dl (0.44-1.00); GLUCOSE 104 mg/dl (70-220); POTASSIUM 4.7 mmol/L (3.5-5.1); SODIUM 144 mmol/L (135-144); TOTAL PROTEIN 6.3 g/dl (6.1-8.1)
[2019-03-09] MEDS: SOLIFENACIN 5 MG TAB PO (09:00)
[2019-03-09 09:33] LABS: ANISOCYTOSIS 1+ (0-0); BAND NEUTROPHILS #M 0.4 10^3/ul (0.0-0.6); BAND NEUTROPHILS % (M) 7 % (0-4); BASOPHILS % (M) 1 % (0-2); EOSINOPHILS % (M) 7 % (0-7); HYPOCHROMASIA 1+ (0-0); LYMPHOCYTES #M 0.8 10^3/ul (0.8-2.9); LYMPHOCYTES % (M) 13 % (15-51); MICROCYTOSIS 1+ (0-0); MONOCYTE #M 0.1 10^3/ul (0.3-0.9); MONOCYTES % (M) 3 % (0-11); PLATELET ESTIMATE NORMAL; POLYCHROMASIA 1+ (0-0); SEG NEUT #M 4.3 10^3/ul (1.6-7.5); SEGMENTED NEUTROPHILS (M) % 69 % (39-77); SMUDGE%M 1 % (0-0)
[2019-03-09] MEDS: ASPIRIN 81 MG TAB PO ×2 (09:40→20:32)
[2019-03-09] MEDS: AMLODIPINE 10 MG TAB PO (09:41)
[2019-03-09] MEDS: SERTRALINE 100 MG TAB PO (09:42)
[2019-03-09] MEDS: LISINOPRIL 20 MG TAB PO (09:44)
[2019-03-09] MEDS: ACETAMINOPHEN 325 MG TAB PO ×2 (12:11→21:33)
[2019-03-09] MEDS: METOPROLOL (XL) 50 MG TAB PO ×2 (13:00→20:32)
[2019-03-09] MEDS: FERROUS SULFATE (EC) 325 MG TAB PO (20:32)
[2019-03-09] MEDS: ROPINIROLE 1 MG TAB PO (20:32)
[2019-03-10] MEDS: PANTOPRAZOLE (EC) 40 MG TAB PO (06:20)
[2019-03-10] MEDS: METOPROLOL (XL) 50 MG TAB PO ×3 (09:00→21:01)
[2019-03-10] MEDS: SOLIFENACIN 5 MG TAB PO (09:00)
[2019-03-10] MEDS: ASPIRIN 81 MG TAB PO ×2 (09:15→21:00)
[2019-03-10] MEDS: SERTRALINE 100 MG TAB PO (09:16)
[2019-03-10] MEDS: AMLODIPINE 10 MG TAB PO (09:18)
[2019-03-10] MEDS: LISINOPRIL 20 MG TAB PO (09:19)
[2019-03-10] MEDS: FERROUS SULFATE (EC) 325 MG TAB PO ×2 (09:19→21:01)
[2019-03-10] MEDS: DOCUSATE SODIUM 100 MG CAP PO (12:11)
[2019-03-10] MEDS: FOSFOMYCIN 3 GM PACKET PO (16:01)
[2019-03-10] MEDS: ROPINIROLE 1 MG TAB PO (21:00)
[2019-03-10] MEDS: ASCORBIC ACID 500 MG TAB PO (21:01)
[2019-03-11] MEDS: PANTOPRAZOLE (EC) 40 MG TAB PO (06:01)
[2019-03-11 07:17] LABS: ADD MAN DIFF? NO
[2019-03-11 07:19] LABS: WHITE BLOOD COUNT 5.9 10^3/ul (4.8-10.8)
[2019-03-11 07:19] LABS: BASOPHILS % 0.3 % (0.0-2.0); EOSINOPHILS # 0.1 10^3/ul (0.0-0.5); EOSINOPHILS % 2.4 % (0.0-7.0); HEMATOCRIT 28.2 % (37.0-47.0); HEMOGLOBIN 8.8 g/dl (12.0-16.0); LYMPHOCYTES # 1.2 10^3/ul (0.8-2.9); MEAN CORPUSCULAR HEMOGLOBIN 27.8 pg (29.0-33.0); MEAN CORPUSCULAR HGB CONC 31.2 g/dl (32.0-37.0); MEAN CORPUSCULAR VOLUME 89.2 fl (82.0-101.0); MEAN PLATELET VOLUME 9.9 fl (7.4-10.4); MONOCYTE # 0.4 10^3/ul (0.3-0.9); MONOCYTES % 6.7 % (0.0-11.0); NEUTROPHILS % 68.6 % (39.0-77.0); PLATELET COUNT 278 10^3/UL (140-415); RED BLOOD COUNT 3.16 10^6/ul (4.20-5.40); RED CELL DISTRIBUTION WIDTH 14.6 % (11.5-14.5)
[2019-03-11 07:38] LABS: ANION GAP 6 (5-13); BLOOD UREA NITROGEN 17 mg/dl (7-20); CALCIUM 8.6 mg/dl (8.4-10.2); CARBON DIOXIDE 30 mmol/L (21-31); CHLORIDE 106 mmol/L (97-110); CREATININE 0.82 mg/dl (0.44-1.00); GLUCOSE 99 mg/dl (70-220); MAGNESIUM 1.6 mg/dl (1.7-2.5); PHOSPHORUS 3.7 mg/dl (2.5-4.9); POTASSIUM 3.7 mmol/L (3.5-5.1); SODIUM 142 mmol/L (135-144)
[2019-03-11] MEDS: SOLIFENACIN 5 MG TAB PO (09:00)
[2019-03-11] MEDS: MAGNESIUM OXIDE 400 MG TAB PO ×2 (09:48→14:27)
[2019-03-11] MEDS: ASPIRIN 81 MG TAB PO ×2 (09:48→21:06)
[2019-03-11] MEDS: LISINOPRIL 20 MG TAB PO (09:48)
[2019-03-11] MEDS: FERROUS SULFATE (EC) 325 MG TAB PO ×2 (09:48→21:06)
[2019-03-11] MEDS: AMLODIPINE 10 MG TAB PO (09:48)
[2019-03-11] MEDS: ASCORBIC ACID 500 MG TAB PO ×2 (09:48→21:06)
[2019-03-11] MEDS: SERTRALINE 100 MG TAB PO (09:48)
[2019-03-11] MEDS: METOPROLOL (XL) 50 MG TAB PO ×2 (12:10→23:18)
[2019-03-11] MEDS: LACTULOSE 30ML CUP PO (14:25)
[2019-03-11] MEDS: ROPINIROLE 1 MG TAB PO (21:06)
[2019-03-12] MEDS: PANTOPRAZOLE (EC) 40 MG TAB PO (06:07)
[2019-03-12] MEDS: SOLIFENACIN 5 MG TAB PO (09:00)
[2019-03-12] MEDS: MAGNESIUM OXIDE 400 MG TAB PO (09:34)
[2019-03-12] MEDS: SERTRALINE 100 MG TAB PO (09:35)
[2019-03-12] MEDS: ASPIRIN 81 MG TAB PO ×2 (09:35→21:07)
[2019-03-12] MEDS: LISINOPRIL 20 MG TAB PO (09:41)
[2019-03-12] MEDS: FERROUS SULFATE (EC) 325 MG TAB PO ×2 (09:43→21:08)
[2019-03-12] MEDS: ASCORBIC ACID 500 MG TAB PO ×2 (09:43→21:08)
[2019-03-12] MEDS: AMLODIPINE 10 MG TAB PO (09:43)
[2019-03-12] MEDS: METOPROLOL (XL) 50 MG TAB PO ×2 (11:59→23:14)
[2019-03-12] MEDS: ROPINIROLE 1 MG TAB PO (21:10)
[2019-03-12] MEDS: ACETAMINOPHEN 325 MG TAB PO (23:14)
[2019-03-13] MEDS: PANTOPRAZOLE (EC) 40 MG TAB PO ×2 (06:30→20:19)
[2019-03-13 06:40] LABS: ADD UMIC YES; UR ASCORBIC ACID 20 mg/dL (NEGATIVE); UR BACTERIA FEW /HPF (NONE SEEN); UR BILIRUBIN (Dip) NEGATIVE (NEGATIVE); UR BLOOD (Dip) NEGATIVE (NEGATIVE); UR CLARITY SLIGHTLY CLOUDY (CLEAR); UR COLOR YELLOW (YELLOW); UR GLUCOSE (Dip) NEGATIVE (NEGATIVE); UR KETONES (Dip) NEGATIVE (NEGATIVE); UR LEUKOCYTE ESTERASE (Dip) TRACE Leu/ul (NEGATIVE); UR NITRITE (Dip) NEGATIVE (NEGATIVE); UR RBC 0 /HPF (0-5); UR SPECIFIC GRAVITY (Dip) 1.012 (1.003-1.030); UR SQUAMOUS EPITHELIAL CELL FEW /HPF (FEW); UR TOTAL PROTEIN (Dip) NEGATIVE (NEGATIVE); UR UROBILINOGEN (Dip) NEGATIVE (NEGATIVE); UR WBC 4 /HPF (0-5)
[2019-03-13] MEDS: ACETAMINOPHEN 325 MG TAB PO (08:04)
[2019-03-13] MEDS: ASCORBIC ACID 500 MG TAB PO ×2 (08:47→20:19)
[2019-03-13] MEDS: AMLODIPINE 10 MG TAB PO (08:47)
[2019-03-13] MEDS: MAGNESIUM OXIDE 400 MG TAB PO (08:47)
[2019-03-13] MEDS: LISINOPRIL 20 MG TAB PO (08:48)
[2019-03-13] MEDS: ASPIRIN 81 MG TAB PO ×2 (08:48→20:19)
[2019-03-13] MEDS: SERTRALINE 100 MG TAB PO (08:48)
[2019-03-13] MEDS: MULTIVITAMINS THERAPEUTIC TAB PO (09:00)
[2019-03-13] MEDS: FERROUS SULFATE (EC) 325 MG TAB PO ×2 (09:00→20:19)
[2019-03-13] MEDS ORDERED: AL HYDROX/MG HYDROX/SIMETH 30 ML CUP PO (12:00)
[2019-03-13] MEDS: METOPROLOL (XL) 50 MG TAB PO ×2 (12:53→22:04)
[2019-03-13] MEDS: SUCRALFATE (100 MG/ML) 10ML CUP PO ×3 (12:53→20:19)
[2019-03-13] MEDS: traMADol 50 MG TAB GTB (16:04)
[2019-03-13] MEDS ORDERED: ALPRAZOLAM 0.25 MG TAB PO (17:00)
[2019-03-13] MEDS: ROPINIROLE 1 MG TAB PO (20:19)
[2019-03-13] MEDS: ALPRAZOLAM 0.25 MG TAB PO (20:37)
[2019-03-14] MEDS ORDERED: ALPRAZOLAM 0.25 MG TAB PO (05:00)
[2019-03-14] MEDS: FERROUS SULFATE (EC) 325 MG TAB PO ×2 (08:48→20:21)
[2019-03-14] MEDS: ASPIRIN 81 MG TAB PO ×2 (08:48→20:21)
[2019-03-14] MEDS: MULTIVITAMINS THERAPEUTIC TAB PO (08:48)
[2019-03-14] MEDS: ASCORBIC ACID 500 MG TAB PO ×2 (08:48→20:21)
[2019-03-14] MEDS: SERTRALINE 100 MG TAB PO (08:48)
[2019-03-14] MEDS: SUCRALFATE (100 MG/ML) 10ML CUP PO ×4 (08:48→20:21)
[2019-03-14] MEDS: AMLODIPINE 10 MG TAB PO (08:49)
[2019-03-14] MEDS: MAGNESIUM OXIDE 400 MG TAB PO (08:49)
[2019-03-14] MEDS: PANTOPRAZOLE (EC) 40 MG TAB PO ×2 (08:49→20:21)
[2019-03-14] MEDS: LISINOPRIL 20 MG TAB PO (08:49)
[2019-03-14] MEDS: ACETAMINOPHEN 325 MG TAB PO (11:28)
[2019-03-14] MEDS: METOPROLOL (XL) 50 MG TAB PO ×2 (11:29→22:48)
[2019-03-14] MEDS: ROPINIROLE 1 MG TAB PO (20:21)
[2019-03-15 07:37] LABS: ANION GAP 9 (5-13); BLOOD UREA NITROGEN 22 mg/dl (7-20); CALCIUM 8.9 mg/dl (8.4-10.2); CARBON DIOXIDE 28 mmol/L (21-31); CHLORIDE 104 mmol/L (97-110); CREATININE 0.81 mg/dl (0.44-1.00); GLUCOSE 105 mg/dl (70-220); PHOSPHORUS 3.7 mg/dl (2.5-4.9); POTASSIUM 4.4 mmol/L (3.5-5.1); SODIUM 141 mmol/L (135-144)
[2019-03-15] MEDS: SERTRALINE 100 MG TAB PO (08:18)
[2019-03-15] MEDS: SUCRALFATE (100 MG/ML) 10ML CUP PO ×4 (08:18→21:27)
[2019-03-15] MEDS: AMLODIPINE 10 MG TAB PO (08:19)
[2019-03-15] MEDS: PANTOPRAZOLE (EC) 40 MG TAB PO ×2 (08:19→17:25)
[2019-03-15] MEDS: LISINOPRIL 20 MG TAB PO (08:19)
[2019-03-15] MEDS: ASPIRIN 81 MG TAB PO ×2 (08:21→21:27)
[2019-03-15] MEDS: MAGNESIUM OXIDE 400 MG TAB PO (09:33)
[2019-03-15] MEDS: ASCORBIC ACID 500 MG TAB PO ×2 (09:33→21:27)
[2019-03-15] MEDS: MULTIVITAMINS THERAPEUTIC TAB PO (09:33)
[2019-03-15] MEDS: FERROUS SULFATE (EC) 325 MG TAB PO ×2 (09:33→21:27)
[2019-03-15] MEDS ORDERED: ONDANSETRON (ODT) 4 MG TAB ODT (11:00)
[2019-03-15] MEDS: ACETAMINOPHEN 325 MG TAB PO ×2 (11:43→22:08)
[2019-03-15] MEDS: METOPROLOL (XL) 50 MG TAB PO ×2 (11:44→22:09)
[2019-03-15] MEDS ORDERED: PANTOPRAZOLE (EC) 40 MG TAB PO (18:00)
[2019-03-15] MEDS: ROPINIROLE 1 MG TAB PO (21:27)
[2019-03-16] MEDS: PANTOPRAZOLE (EC) 40 MG TAB PO ×2 (06:40→17:37)
[2019-03-16] MEDS: SUCRALFATE (100 MG/ML) 10ML CUP PO ×4 (08:34→21:08)
[2019-03-16] MEDS: AMLODIPINE 10 MG TAB PO (08:35)
[2019-03-16] MEDS: SERTRALINE 100 MG TAB PO (08:35)
[2019-03-16] MEDS: LISINOPRIL 20 MG TAB PO (08:36)
[2019-03-16] MEDS: ASPIRIN 81 MG TAB PO ×2 (08:38→21:09)
[2019-03-16] MEDS: MAGNESIUM OXIDE 400 MG TAB PO (08:38)
[2019-03-16] MEDS: ASCORBIC ACID 500 MG TAB PO ×2 (08:38→21:09)
[2019-03-16] MEDS: FERROUS SULFATE (EC) 325 MG TAB PO ×2 (08:38→21:08)
[2019-03-16] MEDS: MULTIVITAMINS THERAPEUTIC TAB PO (08:38)
[2019-03-16] MEDS: METOPROLOL (XL) 50 MG TAB PO ×2 (12:12→23:00)
[2019-03-16] MEDS: ACETAMINOPHEN 325 MG TAB PO (21:08)
[2019-03-16] MEDS: ROPINIROLE 1 MG TAB PO (21:08)
[2019-03-17] MEDS: PANTOPRAZOLE (EC) 40 MG TAB PO ×2 (06:58→18:00)
[2019-03-17] MEDS: MAGNESIUM HYDROXIDE 30ML CUP PO (06:59)
[2019-03-17] MEDS: SUCRALFATE (100 MG/ML) 10ML CUP PO ×4 (09:51→20:59)
[2019-03-17] MEDS: FERROUS SULFATE (EC) 325 MG TAB PO ×2 (09:55→20:58)
[2019-03-17] MEDS: SERTRALINE 100 MG TAB PO (09:56)
[2019-03-17] MEDS: MULTIVITAMINS THERAPEUTIC TAB PO (09:56)
[2019-03-17] MEDS: ASPIRIN 81 MG TAB PO ×2 (09:56→20:59)
[2019-03-17] MEDS: MAGNESIUM OXIDE 400 MG TAB PO (09:56)
[2019-03-17] MEDS: AMLODIPINE 10 MG TAB PO (10:00)
[2019-03-17] MEDS: LISINOPRIL 20 MG TAB PO (10:00)
[2019-03-17] MEDS: ASCORBIC ACID 500 MG TAB PO ×2 (10:14→20:59)
[2019-03-17] MEDS: METOPROLOL (XL) 50 MG TAB PO ×2 (12:20→22:53)
[2019-03-17] MEDS: ROPINIROLE 1 MG TAB PO (20:58)
[2019-03-18] MEDS: PANTOPRAZOLE (EC) 40 MG TAB PO ×2 (06:57→18:00)
[2019-03-18] MEDS: SUCRALFATE (100 MG/ML) 10ML CUP PO ×4 (09:00→21:00)
[2019-03-18] MEDS: LISINOPRIL 20 MG TAB PO (09:38)
[2019-03-18] MEDS: ASCORBIC ACID 500 MG TAB PO ×2 (09:38→21:10)
[2019-03-18] MEDS: MULTIVITAMINS THERAPEUTIC TAB PO (09:38)
[2019-03-18] MEDS: FERROUS SULFATE (EC) 325 MG TAB PO ×2 (09:38→21:10)
[2019-03-18] MEDS: MAGNESIUM OXIDE 400 MG TAB PO (09:38)
[2019-03-18] MEDS: SERTRALINE 100 MG TAB PO (09:38)
[2019-03-18] MEDS: AMLODIPINE 10 MG TAB PO (09:39)
[2019-03-18] MEDS: ASPIRIN 81 MG TAB PO ×2 (09:40→21:10)
[2019-03-18] MEDS: METOPROLOL (XL) 50 MG TAB PO ×2 (12:20→23:00)
[2019-03-18] MEDS: ROPINIROLE 1 MG TAB PO (21:10)
[2019-03-19] MEDS: PANTOPRAZOLE (EC) 40 MG TAB PO ×2 (06:00→17:51)
[2019-03-19] MEDS: SUCRALFATE (100 MG/ML) 10ML CUP PO ×2 (09:00→13:00)
[2019-03-19] MEDS: ASPIRIN 81 MG TAB PO ×2 (09:12→21:20)
[2019-03-19] MEDS: SERTRALINE 100 MG TAB PO (09:12)
[2019-03-19] MEDS: MAGNESIUM OXIDE 400 MG TAB PO (09:13)
[2019-03-19] MEDS: LISINOPRIL 20 MG TAB PO (09:13)
[2019-03-19] MEDS: MULTIVITAMINS THERAPEUTIC TAB PO (09:13)
[2019-03-19] MEDS: AMLODIPINE 10 MG TAB PO (09:13)
[2019-03-19] MEDS: ASCORBIC ACID 500 MG TAB PO ×2 (09:13→21:18)
[2019-03-19] MEDS: FERROUS SULFATE (EC) 325 MG TAB PO ×2 (09:13→21:18)
[2019-03-19] MEDS: METOPROLOL (XL) 50 MG TAB PO ×2 (12:04→23:13)
[2019-03-19] MEDS: ACETAMINOPHEN 325 MG TAB PO (14:28)
[2019-03-19] MEDS: GABAPENTIN 100 MG CAP PO (21:00)
[2019-03-19] MEDS: ROPINIROLE 1 MG TAB PO (21:19)
[2019-03-20] MEDS: PANTOPRAZOLE (EC) 40 MG TAB PO ×2 (06:42→17:56)
[2019-03-20] MEDS: FERROUS SULFATE (EC) 325 MG TAB PO ×2 (09:00→22:06)
[2019-03-20] MEDS: ASPIRIN 81 MG TAB PO ×2 (09:00→22:06)
[2019-03-20] MEDS: LISINOPRIL 20 MG TAB PO (09:00)
[2019-03-20] MEDS: AMLODIPINE 10 MG TAB PO (09:00)
[2019-03-20] MEDS: MULTIVITAMINS THERAPEUTIC TAB PO (09:01)
[2019-03-20] MEDS: MAGNESIUM OXIDE 400 MG TAB PO (09:01)
[2019-03-20] MEDS: ASCORBIC ACID 500 MG TAB PO ×2 (09:01→22:06)
[2019-03-20] MEDS: SERTRALINE 100 MG TAB PO (09:02)
[2019-03-20] MEDS: METOPROLOL (XL) 50 MG TAB PO ×2 (11:00→22:08)
[2019-03-20] MEDS: ACETAMINOPHEN 325 MG TAB PO ×2 (13:44→22:07)
[2019-03-20] MEDS: GABAPENTIN 100 MG CAP PO (21:00)
[2019-03-20] MEDS: ROPINIROLE 1 MG TAB PO (22:08)
[2019-03-21] MEDS: PANTOPRAZOLE (EC) 40 MG TAB PO ×2 (06:52→18:00)
[2019-03-21] MEDS: FERROUS SULFATE (EC) 325 MG TAB PO ×2 (09:43→21:52)
[2019-03-21] MEDS: MULTIVITAMINS THERAPEUTIC TAB PO (09:44)
[2019-03-21] MEDS: ASPIRIN 81 MG TAB PO ×2 (09:45→21:52)
[2019-03-21] MEDS: MAGNESIUM OXIDE 400 MG TAB PO (09:45)
[2019-03-21] MEDS: ASCORBIC ACID 500 MG TAB PO ×2 (09:45→21:52)
[2019-03-21] MEDS: SERTRALINE 100 MG TAB PO (09:46)
[2019-03-21] MEDS: AMLODIPINE 10 MG TAB PO (09:47)
[2019-03-21] MEDS: LISINOPRIL 20 MG TAB PO (09:48)
[2019-03-21] MEDS: METOPROLOL (XL) 50 MG TAB PO (11:56)
[2019-03-21] MEDS: GABAPENTIN 100 MG CAP PO (18:05)
[2019-03-21] MEDS: ROPINIROLE 1 MG TAB PO (21:52)
[2019-03-22] MEDS: METOPROLOL (XL) 50 MG TAB PO ×3 (00:07→22:56)
[2019-03-22] MEDS: PANTOPRAZOLE (EC) 40 MG TAB PO ×2 (06:24→17:05)
[2019-03-22] MEDS: MULTIVITAMINS THERAPEUTIC TAB PO (08:59)
[2019-03-22] MEDS: SERTRALINE 100 MG TAB PO (09:00)
[2019-03-22] MEDS: ASPIRIN 81 MG TAB PO ×2 (09:00→21:35)
[2019-03-22] MEDS: ASCORBIC ACID 500 MG TAB PO ×2 (09:00→21:35)
[2019-03-22] MEDS: FERROUS SULFATE (EC) 325 MG TAB PO ×2 (09:00→21:35)
[2019-03-22] MEDS: MAGNESIUM OXIDE 400 MG TAB PO (09:00)
[2019-03-22] MEDS: LISINOPRIL 20 MG TAB PO (09:03)
[2019-03-22] MEDS: AMLODIPINE 10 MG TAB PO (09:03)
[2019-03-22] MEDS: ACETAMINOPHEN 325 MG TAB PO ×2 (10:27→21:34)
[2019-03-22] MEDS: GABAPENTIN 100 MG CAP PO (17:06)
[2019-03-22] MEDS: ROPINIROLE 1 MG TAB PO (21:34)
[2019-03-23] MEDS: PANTOPRAZOLE (EC) 40 MG TAB PO ×2 (06:28→18:00)
[2019-03-23] MEDS: FERROUS SULFATE (EC) 325 MG TAB PO ×2 (09:46→22:21)
[2019-03-23] MEDS: ASPIRIN 81 MG TAB PO ×2 (09:46→22:21)
[2019-03-23] MEDS: MAGNESIUM OXIDE 400 MG TAB PO (09:46)
[2019-03-23] MEDS: MULTIVITAMINS THERAPEUTIC TAB PO (09:47)
[2019-03-23] MEDS: LISINOPRIL 20 MG TAB PO (09:47)
[2019-03-23] MEDS: SERTRALINE 100 MG TAB PO (09:47)
[2019-03-23] MEDS: ASCORBIC ACID 500 MG TAB PO ×2 (09:47→22:21)
[2019-03-23] MEDS: AMLODIPINE 10 MG TAB PO (09:48)
[2019-03-23] MEDS: METOPROLOL (XL) 50 MG TAB PO ×2 (11:00→22:22)
[2019-03-23] MEDS: GABAPENTIN 100 MG CAP PO (18:22)
[2019-03-23] MEDS: ROPINIROLE 1 MG TAB PO (22:21)
[2019-03-24] MEDS: PANTOPRAZOLE (EC) 40 MG TAB PO ×2 (06:56→17:17)
[2019-03-24] MEDS: ACETAMINOPHEN 325 MG TAB PO ×2 (09:23→21:18)
[2019-03-24] MEDS: ASPIRIN 81 MG TAB PO ×2 (09:23→21:15)
[2019-03-24] MEDS: ASCORBIC ACID 500 MG TAB PO ×2 (09:24→21:14)
[2019-03-24] MEDS: AMLODIPINE 10 MG TAB PO (09:24)
[2019-03-24] MEDS: MULTIVITAMINS THERAPEUTIC TAB PO (09:24)
[2019-03-24] MEDS: MAGNESIUM OXIDE 400 MG TAB PO (09:24)
[2019-03-24] MEDS: FERROUS SULFATE (EC) 325 MG TAB PO ×2 (09:24→21:14)
[2019-03-24] MEDS: SERTRALINE 100 MG TAB PO (09:24)
[2019-03-24] MEDS: LISINOPRIL 20 MG TAB PO (09:25)
[2019-03-24] MEDS: METOPROLOL (XL) 50 MG TAB PO ×2 (11:00→22:46)
[2019-03-24] MEDS: GABAPENTIN 100 MG CAP PO (17:17)
[2019-03-24] MEDS: ROPINIROLE 1 MG TAB PO (21:13)
[2019-03-25] MEDS: PANTOPRAZOLE (EC) 40 MG TAB PO ×2 (06:46→17:42)
[2019-03-25 07:21] LABS: ADD MAN DIFF? NO
[2019-03-25 07:37] LABS: WHITE BLOOD COUNT 3.5 10^3/ul (4.8-10.8)
[2019-03-25 07:37] LABS: BASOPHILS % 0.6 % (0.0-2.0); EOSINOPHILS # 0.1 10^3/ul (0.0-0.5); EOSINOPHILS % 3.1 % (0.0-7.0); HEMATOCRIT 31.1 % (37.0-47.0); HEMOGLOBIN 9.3 g/dl (12.0-16.0); LYMPHOCYTES # 1.4 10^3/ul (0.8-2.9); MEAN CORPUSCULAR HEMOGLOBIN 27.7 pg (29.0-33.0); MEAN CORPUSCULAR HGB CONC 29.9 g/dl (32.0-37.0); MEAN CORPUSCULAR VOLUME 92.6 fl (82.0-101.0); MEAN PLATELET VOLUME 9.7 fl (7.4-10.4); MONOCYTE # 0.4 10^3/ul (0.3-0.9); MONOCYTES % 10.8 % (0.0-11.0); NEUTROPHIL # 1.6 10^3/ul (1.6-7.5); NEUTROPHILS % 44.2 % (39.0-77.0); PLATELET COUNT 194 10^3/UL (140-415); RED BLOOD COUNT 3.36 10^6/ul (4.20-5.40); RED CELL DISTRIBUTION WIDTH 14.6 % (11.5-14.5)
[2019-03-25 07:59] LABS: ALANINE AMINOTRANSFERASE 17 IU/L (13-69); ALBUMIN 3.5 g/dl (3.3-4.9); ALKALINE PHOSPHATASE 128 IU/L (42-121); ANION GAP 9 (5-13); ASPARTATE AMINO TRANSFERASE 22 IU/L (15-46); BILIRUBIN,INDIRECT 0.2 mg/dl (0-1.1); BILIRUBIN,TOTAL 0.2 mg/dl (0.2-1.3); BLOOD UREA NITROGEN 63 mg/dl (7-20); CALCIUM 9.3 mg/dl (8.4-10.2); CARBON DIOXIDE 29 mmol/L (21-31); CHLORIDE 104 mmol/L (97-110); CREATININE 1.52 mg/dl (0.44-1.00); GLUCOSE 98 mg/dl (70-220); POTASSIUM 5.2 mmol/L (3.5-5.1); SODIUM 142 mmol/L (135-144)
[2019-03-25 08:06] LABS: MAGNESIUM 2.3 mg/dl (1.7-2.5)
[2019-03-25] MEDS: ASPIRIN 81 MG TAB PO ×2 (08:28→21:30)
[2019-03-25] MEDS: FERROUS SULFATE (EC) 325 MG TAB PO ×2 (08:28→21:30)
[2019-03-25] MEDS: MAGNESIUM OXIDE 400 MG TAB PO (08:29)
[2019-03-25] MEDS: MULTIVITAMINS THERAPEUTIC TAB PO (08:29)
[2019-03-25] MEDS: SERTRALINE 100 MG TAB PO (08:29)
[2019-03-25] MEDS: ASCORBIC ACID 500 MG TAB PO ×2 (08:29→21:30)
[2019-03-25] MEDS: LISINOPRIL 20 MG TAB PO (08:29)
[2019-03-25] MEDS: AMLODIPINE 10 MG TAB PO (08:33)
[2019-03-25] MEDS: LACTATED RINGER'S 500 ML IV ×2 (10:30→13:16)
[2019-03-25] MEDS: METOPROLOL (XL) 50 MG TAB PO ×2 (11:20→22:56)
[2019-03-25] MEDS: GABAPENTIN 100 MG CAP PO (17:42)
[2019-03-25] MEDS: ACETAMINOPHEN 325 MG TAB PO (21:30)
[2019-03-25] MEDS: ROPINIROLE 1 MG TAB PO (21:30)
[2019-03-26] MEDS: PANTOPRAZOLE (EC) 40 MG TAB PO ×2 (06:41→17:33)
[2019-03-26 07:47] LABS: ANION GAP 8 (5-13); BLOOD UREA NITROGEN 56 mg/dl (7-20); CALCIUM 9.6 mg/dl (8.4-10.2); CARBON DIOXIDE 29 mmol/L (21-31); CHLORIDE 104 mmol/L (97-110); CREATININE 1.24 mg/dl (0.44-1.00); GLUCOSE 89 mg/dl (70-220); POTASSIUM 4.7 mmol/L (3.5-5.1); SODIUM 141 mmol/L (135-144)
[2019-03-26] MEDS: MULTIVITAMINS THERAPEUTIC TAB PO (08:43)
[2019-03-26] MEDS: SERTRALINE 100 MG TAB PO (08:44)
[2019-03-26] MEDS: ASPIRIN 81 MG TAB PO ×2 (08:44→20:36)
[2019-03-26] MEDS: FERROUS SULFATE (EC) 325 MG TAB PO ×2 (08:44→20:36)
[2019-03-26] MEDS: ASCORBIC ACID 500 MG TAB PO ×2 (08:44→20:36)
[2019-03-26] MEDS: LISINOPRIL 20 MG TAB PO (08:45)
[2019-03-26] MEDS: AMLODIPINE 10 MG TAB PO (08:45)
[2019-03-26] MEDS: MAGNESIUM OXIDE 400 MG TAB PO (08:46)
[2019-03-26] MEDS: ACETAMINOPHEN 325 MG TAB PO (09:43)
[2019-03-26] MEDS: METOPROLOL (XL) 50 MG TAB PO ×2 (13:52→23:10)
[2019-03-26] MEDS: GABAPENTIN 100 MG CAP PO (17:33)
[2019-03-26] MEDS: ROPINIROLE 1 MG TAB PO (20:36)
[2019-03-27] MEDS: PANTOPRAZOLE (EC) 40 MG TAB PO ×2 (06:28→17:12)
[2019-03-27] MEDS: LISINOPRIL 20 MG TAB PO (09:40)
[2019-03-27] MEDS: SERTRALINE 100 MG TAB PO (09:41)
[2019-03-27] MEDS: MULTIVITAMINS THERAPEUTIC TAB PO (09:41)
[2019-03-27] MEDS: FERROUS SULFATE (EC) 325 MG TAB PO ×2 (09:41→21:00)
[2019-03-27] MEDS: ASPIRIN 81 MG TAB PO ×2 (09:41→21:19)
[2019-03-27] MEDS: ASCORBIC ACID 500 MG TAB PO ×2 (09:41→21:19)
[2019-03-27] MEDS: MAGNESIUM OXIDE 400 MG TAB PO (09:41)
[2019-03-27] MEDS: AMLODIPINE 10 MG TAB PO (09:41)
[2019-03-27] MEDS: METOPROLOL (XL) 50 MG TAB PO (12:23)
[2019-03-27] MEDS: GABAPENTIN 100 MG CAP PO (17:13)
[2019-03-27] MEDS: ROPINIROLE 1 MG TAB PO (21:18)
[2019-03-27] MEDS: ACETAMINOPHEN 325 MG TAB PO (21:19)
[2019-03-28] MEDS: METOPROLOL (XL) 50 MG TAB PO ×3 (01:44→22:24)
[2019-03-28] MEDS: PANTOPRAZOLE (EC) 40 MG TAB PO ×2 (06:42→17:42)
[2019-03-28 08:54] LABS: ANION GAP 6 (5-13); BLOOD UREA NITROGEN 50 mg/dl (7-20); CALCIUM 9.7 mg/dl (8.4-10.2); CARBON DIOXIDE 32 mmol/L (21-31); CHLORIDE 104 mmol/L (97-110); CREATININE 1.24 mg/dl (0.44-1.00); GLUCOSE 95 mg/dl (70-220); MAGNESIUM 2.1 mg/dl (1.7-2.5); PHOSPHORUS 5.3 mg/dl (2.5-4.9); POTASSIUM 5.8 mmol/L (3.5-5.1); SODIUM 142 mmol/L (135-144)
[2019-03-28] MEDS: ASPIRIN 81 MG TAB PO ×2 (09:24→20:25)
[2019-03-28] MEDS: AMLODIPINE 10 MG TAB PO (09:24)
[2019-03-28] MEDS: ASCORBIC ACID 500 MG TAB PO ×2 (09:24→20:25)
[2019-03-28] MEDS: MAGNESIUM OXIDE 400 MG TAB PO (09:24)
[2019-03-28] MEDS: FERROUS SULFATE (EC) 325 MG TAB PO ×2 (09:24→20:25)
[2019-03-28] MEDS: SERTRALINE 100 MG TAB PO (09:24)
[2019-03-28] MEDS: MULTIVITAMINS THERAPEUTIC TAB PO (09:24)
[2019-03-28] MEDS: LISINOPRIL 20 MG TAB PO (09:25)
[2019-03-28] MEDS: GABAPENTIN 100 MG CAP PO (17:42)
[2019-03-28] MEDS: SODIUM POLYSTYRENE 15 GM KIT (POWDER + SORBITOL) PO (17:42)
[2019-03-28 19:29] LABS: PHOSPHORUS 5.8 mg/dl (2.5-4.9)
[2019-03-28 19:29] LABS: MAGNESIUM 2.2 mg/dl (1.7-2.5)
[2019-03-28] MEDS: ROPINIROLE 1 MG TAB PO (20:25)
[2019-03-28] MEDS: ACETAMINOPHEN 325 MG TAB PO (22:30)
[2019-03-29] MEDS: PANTOPRAZOLE (EC) 40 MG TAB PO (06:07)
[2019-03-29 06:51] LABS: ANION GAP 9 (5-13); BLOOD UREA NITROGEN 50 mg/dl (7-20); CALCIUM 9.1 mg/dl (8.4-10.2); CARBON DIOXIDE 30 mmol/L (21-31); CHLORIDE 104 mmol/L (97-110); CREATININE 1.24 mg/dl (0.44-1.00); GLUCOSE 98 mg/dl (70-220); POTASSIUM 4.2 mmol/L (3.5-5.1); SODIUM 143 mmol/L (135-144)
[2019-03-29] MEDS: ASPIRIN 81 MG TAB PO (09:03)
[2019-03-29] MEDS: MULTIVITAMINS THERAPEUTIC TAB PO (09:03)
[2019-03-29] MEDS: SERTRALINE 100 MG TAB PO (09:03)
[2019-03-29] MEDS: FERROUS SULFATE (EC) 325 MG TAB PO (09:03)
[2019-03-29] MEDS: ASCORBIC ACID 500 MG TAB PO (09:03)
[2019-03-29] MEDS: MAGNESIUM OXIDE 400 MG TAB PO (09:03)
[2019-03-29] MEDS: AMLODIPINE 10 MG TAB PO (09:05)
[2019-03-29] MEDS: METOPROLOL (XL) 50 MG TAB PO (12:16)
== END 2019-03-29 13:30 | disposition home health service (06) | DRG 560 ==
LOC: VRC 15:38
PROC: F07Z5ZZ Bed Mobility Treatment (ICD-10-PCS; principal; 2019-03-08)
PROC: F08Z2ZZ Grooming/Personal Hygiene Treatment (ICD-10-PCS; 2019-03-08)
DX: S72.144D Nondisplaced intertrochanteric fracture of right femur, subsequent encounter for closed fracture with routine healing (principal); N17.9 Acute kidney failure, unspecified; F33.1 Major depressive disorder, recurrent, moderate; G89.18 Other acute postprocedural pain; S42.91XD Fracture of right shoulder girdle, part unspecified, subsequent encounter for fracture with routine healing; E83.42 Hypomagnesemia; E83.9 Disorder of mineral metabolism, unspecified; S72.001D Fracture of unspecified part of neck of right femur, subsequent encounter for closed fracture with routine healing; F39 Unspecified mood [affective] disorder; G25.81 Restless legs syndrome; R31.9 Hematuria, unspecified; D50.0 Iron deficiency anemia secondary to blood loss (chronic); R94.5 Abnormal results of liver function studies; N32.81 Overactive bladder; I12.9 Hypertensive chronic kidney disease with stage 1 through stage 4 chronic kidney disease, or unspecified chronic kidney disease; N18.9 Chronic kidney disease, unspecified; D64.9 Anemia, unspecified; Z79.82 Long term (current) use of aspirin; F06.32 Mood disorder due to known physiological condition with major depressive-like episode; K59.00 Constipation, unspecified; K21.9 Gastro-esophageal reflux disease without esophagitis
CPT/HCPCS: 73500; 80048; 80053; 81001; 83735; 84100; 85025; 87081; 87086; 97110; 97112; 97116; 97150; 97163; 97166; 97530; 97535; 97542